=== PATIENT | female | born 1980 | race Caucasian/White ===

== ENCOUNTER 2024-10-05 17:21 | Emergency (ER) | payer MEDICAID, SELFPAY ==
[2024-10-05 17:28] VITALS: BP 124/75; PULSE 87; RESP 16; TEMP 36.8; O2SAT 95; BMI 23.3
--- NOTE | 2024-10-05 17:44 | XR_ITS ---
Examination: Left ankle 2 views TECHNIQUE: AP lateral left ankle 2 views Date and time: October 05, 2024, 1757 hours. INDICATIONS: Injury to the ankle one week ago with redness swelling and pain FINDINGS: Bimalleolar soft tissue swelling. No fracture or dislocation. IMPRESSION: No fracture or dislocation.
--- NOTE | 2024-10-05 17:44 | XR_ITS ---
Examination: Foot, left, 3 views Technique: AP, oblique, lateral views foot, 3 views Date and time of exam: October 05, 2024, 1734 hours INDICATIONS: Injury to the foot 4 days ago, foot pain. FINDINGS: Old fracture distal third metatarsal No acute fracture Soft tissue swelling dorsum of the foot IMPRESSION: No acute fracture
[2024-10-05 18:00] LABS: Basophils # (Auto) 0.1 Thou/mm3 (0.0-0.2); Basophils % (Auto) 1 % (0-2.5); Eosinophils # (Auto) 0.5 Thou/mm3 (0.0-0.5); Eosinophils % (Auto) 9 % (0-10); Hematocrit 37.4 % (36.0-46.0); Hemoglobin 12.2 g/dL (12.0-16.0); Immature Granulocytes Auto 0.02 Thou/mm3 (0.00-0.00); Lymphocytes # (Auto) 2.0 Thou/mm3 (1.0-4.8); Lymphocytes % (Auto) 35 % (10-50); Mean Corpuscular HGB Conc 32.6 g/dl (31.0-37.0); Mean Corpuscular Hemoglobin 27.3 pg (25.0-35.0); Mean Corpuscular Volume 84 fL (80-100); Monocytes # (Auto) 0.5 Thou/mm3 (0.0-0.8); Monocytes % (Auto) 8 % (0-12); Neutrophils # (Auto) 2.8 Thou/mm3 (1.8-7.7); Neutrophils % (Auto) 48 % (37-80); Nucleated Red Blood Cell # 0.00 Thou/mm3 (0.00-0.00); Nucleated Red Blood Cell % 0 /100 WBC (0); Platelet Count 124 Thou/mm3 (140-440); RDW Standard Deviation 39.9 fL (36.4-46.3); Red Blood Count 4.47 Miln/mm3 (4.00-5.20); White Blood Count 5.9 Thou/mm3 (3.6-11.0)
[2024-10-05 18:33] LABS: Alanine Aminotransferase 53 U/L (10-49); Albumin, Serum 3.4 gm/dL (3.5-5.0); Albumin/Globulin Ratio 1.1 (1.2-2.2); Alkaline Phosphatase 137 U/L (46-116); Anion Gap 8 (7-16); Aspartate Amino Transferase 48 U/L (0-34); BUN/Creatinine Ratio 16 Ratio (12-20); Bilirubin,Total 0.5 mg/dL (0.3-1.2); Blood Urea Nitrogen 11 mg/dL (9-23); Calcium 9.4 mg/dL (8.3-10.6); Calcium (Corrected) 9.9 mg/dL (8.5-10.1); Carbon Dioxide 22.9 mMol/L (20.0-31.0); Chloride 111 mMol/L (98-107); Creatinine (Component) 0.7 mg/dL (0.6-1.3); Estimated Creatinine Clearance 91.3 mL/min (>60); Globulin 3.1 gm/dL (2.3-3.5); Glucose 132 mg/dL (74-106); Osmolality,Calculated 284 (275-295); Potassium 4.0 mMol/L (3.4-5.1); Sodium 142 mMol/L (136-145); Total Protein 6.5 gm/dL (5.7-8.2); eGFR > 60 See Note
[2024-10-05 18:35] LABS: HCG,Qualitative Serum Negative
[2024-10-05] MEDS: CLINDAMYCIN PHOS INJ 150 MG/ML VIAL 6 ML 600 MG IM (18:50)
--- NOTE | 2024-10-05 18:53 | EDNOTE_ITS ---
ED Skin Abcess FB-RME/HPI General Chief complaint: Ankle/Foot Injury Stated complaint: INJURY TO L) FOOT X 1 WK Time Seen by Provider: 10/05/24 17:25 Arrival date/time: 10/05/24 17:21 This is a case of a 43-year-old female with history of psoriasis and liver cirrhosis who came in in the emergency room due to pain swelling and redness on the dorsal aspect of the left foot for 1 week patient denies any injury or trauma denies any numbness weakness tingling sensation denies any fever or chills Limitations: no limitations Related Data Previous Rx's ?Medication ?Instructions ?Recorded cholecalciferol (vitamin D3) 50 2,000 unit PO QDAY 30 days #30 caps 07/01/23 mcg (2,000 unit) capsule multivitamin with iron 1 tab PO QDAY 1 month #30 ta bs 07/01/23 thiamine mononitrate (vit B1) 100 100 mg PO BID 30 day s #60 tabs 07/01/23 mg tablet furosemide 20 mg tablet 20 mg PO QAM 30 days #30 tab s 07/25/23 hydrocodone 5 mg-acetaminophen 325 1 tab PO Q6H PRN pa in #7 tabs 07/25/23 mg tablet ondansetron HCl 4 mg tablet 4 mg PO Q8H PRN nausea and 07/25/23 vomiting #10 tabs spironolactone 50 mg tablet 50 mg PO QDAY 30 days #30 tabs 07/25/23 clindamycin HCl 300 mg capsule 300 mg PO TID 10 days # 30 caps 10/05/24 sulfamethoxazole 800 1 tab PO BID 10 days #20 tab s 10/05/24 mg-trimethoprim 160 mg tablet (Bactrim DS) Allergies Allergy/AdvReac Type Severity Reaction Status Date / Time bee venom protein (honey bee) Allergy Severe Anaphylaxis Verified 10/05/24 17:23 hydromorphone (From Dilaudid) Allergy Severe Difficulty Verified 10/05/24 17:23 Breathing morphine Allergy Severe Difficulty Verified 10/05/24 17:23 Breathing Review of Systems Review of Systems Systems Reviewed: All systems reviewed, normal except as documented Constitutional Constitutional: Reports system reviewed and no additional complaints, except as documented and Reports as per HPI Cardiovascular Cardiovascular: Reports system reviewed and no additional complaints, except as documented and Reports as per HPI Respiratory Respiratory: Reports system reviewed and no additional complaints, except as documented and Reports as per HPI Gastrointestinal Gastrointestinal: Reports system reviewed and no additional complaints, except as documented and Reports as per HPI Genitourinary Genitourinary: Reports system reviewed and no additional complaints, except as documented and Reports as per HPI Musculoskeletal Musculoskeletal: Reports system reviewed and no additional complaints, except as documented and Reports as per HPI Neurologic Neurologic: Reports system reviewed and no additional complaints, except as documented and Reports as per HPI Past Medical History Past Medical History CARDIAC: Positive Hypertension; Negative Cardiac Disorders or Congestive Heart Failure RESPIRATORY: Negative Chronic Obstructive Pulmonary Disease (COPD) or Asthma GASTROINTESTINAL: Positive Gastroesophageal Reflux Disease GENITOURINARY: Negative Genitourinary Disorders or Renal Disease ENDOCRINE: Negative Endocrine Disorders, Diabetes Mellitus Type 1 or Diabetes Mellitus Type 2 HEMATOLOGIC: Negative Blood Disorders or Sickle Cell Disease Surgical History SURGICAL: Positive Tubal Ligation Social History SMOKING STATUS: Never smoker SECOND HAND EXPOSURE: No SUBSTANCE USE: does not use ED Exam General Limitations: Present no limitations General appearance: Present alert, in no apparent distress and other (Patient is awake alert oriented not in distress nontoxic looking well-hydrated well- nourished) Head Head exam: Present atraumatic, normocephalic and normal inspection Eye Eye exam: Present normal appearance, PERRL and EOMI ENT ENT exam: Present normal exam, normal oropharynx and mucous membranes moist Neck Neck exam: Present normal inspection, full ROM and trachea midline Chest Chest inspection: Present normal inspection and symmetric chest wall rise; Absent tenderness Respiratory Respiratory exam: Present normal lung sounds bilaterally; Absent respiratory distress, wheezes, stridor, accessory muscle use or prolonged expiratory phase Cardiovascular Cardiovascular exam: Present regular rate, normal rhythm and normal heart sounds; Absent bradycardia, tachycardia, irregular rhythm, systolic murmur or diastolic murmur Abdominal Exam Abdominal exam: Present soft and normal bowel sounds Extremities Exam Extremities exam: Present normal inspection and full ROM Back Exam Back exam: Present normal inspection and full ROM Neurological Exam Neurological exam: Present alert, oriented X3, CN II-XII intact, normal gait and reflexes normal; Absent motor sensory deficit Psychiatric Psychiatric exam: Present normal affect and normal mood Skin Skin exam: Present warm, dry, intact, normal color and other (Noted a moderate tenderness on palpation on the dorsal aspect of the left foot with redness and swelling suggestive of cellulitis no abscess no open wound no ulcer ROM intact neurovascular intact) Course Quality Measures none Orders Category Date Time Status XR ankle LT 2V Stat Exams 10/05/24 17:44 Completed XR foot comp LT min 3V Stat Exams 10/05/24 17:44 Completed CBC Stat Lab 10/05/24 17:53 Completed CMP [Comprehensive Metabolic Panel] Stat Lab 10/05/24 17:53 Completed HCG,Qualitative Serum Stat Lab 10/05/24 17:53 Completed Clindamycin Vial [Cleocin vial] Med 10/05/24 18:42 Discontinued 600 mg IM X1 ONE Vital Signs Vital signs: Vital Signs Temperature 98.3 F 10/05/24 17:28 Pulse Rate 87 10/05/24 17:28 Respiratory Rate 16 10/05/24 17:28 Blood Pressure 124/75 10/05/24 17:28 Pulse Oximetry (%) 95 10/05/24 17:28 Oxygen Delivery Method Room Air 10/05/24 17:28 Oxygen saturation is 95% in room Skin / Abscess / Foreign Body MDM Narrative MDM Narrative:: This is a case of a 43-year-old female with history of psoriasis and liver cirrhosis who came in in the emergency room due to pain swelling and redness on the dorsal aspect of the left foot for 1 week patient denies any injury or trauma denies any numbness weakness tingling sensation denies any fever or chills physical examination patient is awake alert oriented not in distress nontoxic looking on physical examination moderate tenderness on palpation on the dorsal aspect of the left foot no plantar tenderness with mild swelling no open wound no crepitation no deformity warm to touch suggestive of cellulitis no abscess ROM intact neurovascular intact blood test showed no leukocytosis no anemia kidney function is normal liver function is slightly elevated patient have history of cirrhosis and taking care of GI specialist patient x-ray of the left foot and left ankle were normal no fracture no dislocation based on my physical examination and history patient symptoms suggestive of cellulitis of the left foot patient was given clindamycin here in the emergency room and was discharged with clindamycin and Bactrim patient will return in the emergency room in 2 days for evaluation of cellulitis or any worsening symptoms or any em ergent concern call 911 or go to the nearest emergency room Patient was discharged with comfortable condition walking with stable gait. Patient verbalized no further complains explained diagnosis and answered patient question. Patient is comfortable with the proposed management plan including the need to follow up with his/her primary care physician and any specialist if applicable Discussed patient for any urgent condition or worsening sx, He/She needed to go to emergency room immediately or call 911. Patient acknowledge the responsibility to follow up as instructed and to monitor her/his symptoms. For any persistence of the symptoms for more than 3-5 days return precaution advised. Discussed the result of the test and was given printed discharge instruction Patient data External records reviewed:: [facility] previous records Clinical information provided by:: patient Social determinants that could affect healthcare access:: none Patient has the following chronic illnesses:: None How is presenting disease/condition affected by chronic disease/condition?: no chronic disease Evaluation data The following diagnostics were reviewed and interpreted by me:: lab results and radiology exam(s) Lab and/or radiology exams considered but not ordered:: Reviewed Interpretation Summary: Reviewed Medications / Prescriptions Medications or Prescriptions considered but not ordered:: Given Medication administrations:: Medication Administration History Discontinued Medications Clindamycin Phosphate (Clindamycin Phos Inj 150 Mg/Ml Vial 6 Ml) 600 mg IM X1 ONE Stop: 10/05/24 18:43 Last Admin: 10/05/24 18:50 Dose: 600 mg Documented By: OA Given Consultations Consultation(s) initiated? (list below): No Diagnosis Skin/Abscess Differential Diagnosis: abscess of skin or subcutaneous tissue, cellulitis, insect bites and contact dermatitis Most likely diagnosis given after review of the tests above:: Cellulitis Admission Indicated Admission indicated?: not indicated Explain why admission is indicated or not indicated:: Not indicated Admission Request Was there a request for admission?: No Admission Attestation Admission request attestation: Not indicated Disposition Plan Disposition Plan: Discharge Discharge Attestation Discharge Attestation: The patient and all family members were given an opportunity to ask questions and understood the discharge instructions. Discharge instructions specifically effects, indications for sooner follow up or return to the emergency department, and the expected course of current diagnosis. Patient condition: Stable Discharge Plan Plan Patient Disposition: HOME (Self Care) Patient condition on transfer: Stable Prescriptions/Referrals Prescriptions/Med Rec: New clindamycin HCl 300 mg capsule 300 mg PO TID 10 Days Qty: 30 0RF sulfamethoxazole-trimethoprim [Bactrim DS] 800-160 mg tablet 1 tab PO BID 10 Days Qty: 20 0RF No Action ondansetron HCl 4 mg tablet 4 mg PO Q8H PRN (Reason: nausea and vomiting) Qty: 10 0RF furosemide 20 mg Tablet 20 mg PO QAM 30 Days Qty: 30 3RF spironolactone 50 mg tablet 50 mg PO QDAY 30 Days Qty: 30 2RF hydrocodone-acetaminophen 5-325 mg tablet 1 tab PO Q6H MDD 4 PRN (Reason: pain) Qty: 7 0RF thiamine mononitrate (vit B1) 100 mg Tablet 100 mg PO BID 30 Days Qty: 60 3RF multivitamin with iron Tablet 1 tab PO QDAY 30 Days Qty: 30 3RF cholecalciferol (vitamin D3) 50 mcg (2,000 unit) capsule 2,000 unit PO QDAY 30 Days Qty: 30 3RF Referrals: No Primary/Family,Physician [Primary Care Provider] - In 1 week Problem List Clinical Impression: Cellulitis of left foot Patient/Caregiver Discharge Instructions Education Materials: ED Cellulitis Additional Instructions: Follow-up with your primary care physician in 2 days for reevaluation return in the emergency room in 2 days for reevaluation of the cellulitis left foot worsening symptoms or any emergent concerns such as fever chills redness swelling discharge from pain call 911 or go to the nearest emergency room finish the course of antibiotic warm compresses advised elevate to decrease swelling keep the area clean and dry Print Language: Bahamian Stand Alone Forms: Saida Award Info., Patient Portal Info Letter PA/ANALYSIS MANAGER Supervising Physician PA/ARMANDO Supervising Physician: Dr. Garay
== END 2024-10-05 19:17 | disposition home or self-care (01) ==
PROVIDERS: Nurse Practitioner Family; Emergency Provider Emergency Medicine
DX: L03.116 Cellulitis of left lower limb (principal); K74.60 Unspecified cirrhosis of liver
CPT/HCPCS: 36415; 73600; 73630; 80053; 84703; 85025; 96372; 99283; J0736

== ENCOUNTER 2024-10-14 03:11 | Emergency (ER) | payer MEDICAID, SELFPAY ==
[2024-10-14 04:36] VITALS: BP 124/66; PULSE 89; RESP 18; TEMP 36.7; O2SAT 100
--- NOTE | 2024-10-14 04:38 | PC.NURSE ---
WE HAD DOWN TIME FROM [id number].
--- NOTE | 2024-10-14 05:14 | XR_ITS ---
EXAMINATION: Ankle, left 3 views . Technique: Ankle AP, oblique, lateral 3 views Date and time of exam: October 14, 2024 0524 hours INDICATIONS: Patient fell this morning with injury to the ankle, ankle pain. FINDINGS: Severely comminuted fractures of the calcaneus including depression of the subtalar surface No ankle dislocation IMPRESSION: Severely comminuted fractures of the calcaneus
--- NOTE | 2024-10-14 05:27 | XR_ITS ---
Examination: Foot, left, 3 views Technique: AP, oblique, lateral views foot, 3 views Date and time of exam: October 14, 2024 1724 hours INDICATIONS: Patient fell off a ladder this morning with injury to the foot, foot pain FINDINGS: Acute comminuted fractures, severe, calcaneus with depression subtalar surface Fractures bases and distal aspects second metatarsal Suspicious for fracture distal phalanx fifth digit IMPRESSION: Multiple foot fractures as above
--- NOTE | 2024-10-14 05:27 | EDRME_ITS ---
Rapid Medical Screening Exam RME Arrival date/time: 10/14/24 03:11 43F with history of HTN and alcohol/drug use presents to ED with L foot/ankle pain after landing on it after falling of a ladder. Patient denies hitting head and any other injuries. Chief Complaint: Ankle/Foot Injury Time Seen by Provider: 10/14/24 06:39 Vital signs: Vital Signs Temperature 98.0 F 10/14/24 04:36 Pulse Rate 89 10/14/24 04:36 Respiratory Rate 18 10/14/24 04:36 Blood Pressure 124/66 10/14/24 04:36 Pulse Oximetry (%) 100 10/14/24 04:36 Oxygen Delivery Method Room Air 10/14/24 04:36 General Adult HPI General Chief complaint: Ankle/Foot Injury Stated complaint: FALL, LT ANKLE PAIN Time Seen by Provider: 10/14/24 06:39 Source: patient Mode of arrival: ambulatory Limitations: physical limitation History of Present Illness HPI narrative: 43-year-old female with medical history significant for cirrhosis presents to the emergency department today for complaints of left foot pain patient reports that she fell from a ladder today directly onto the left foot patient reports pain and swelling to the left foot at this time Related Data Previous Rx's ?Medication ?Instructions ?Recorded cholecalciferol (vitamin D3) 50 2,000 unit PO QDAY 30 days #30 caps 07/01/23 mcg (2,000 unit) capsule multivitamin with iron 1 tab PO QDAY 1 month #30 ta bs 07/01/23 thiamine mononitrate (vit B1) 100 100 mg PO BID 30 day s #60 tabs 07/01/23 mg tablet furosemide 20 mg tablet 20 mg PO QAM 30 days #30 tab s 07/25/23 hydrocodone 5 mg-acetaminophen 325 1 tab PO Q6H PRN pa in #7 tabs 07/25/23 mg tablet ondansetron HCl 4 mg tablet 4 mg PO Q8H PRN nausea and 07/25/23 vomiting #10 tabs spironolactone 50 mg tablet 50 mg PO QDAY 30 days #30 tabs 07/25/23 clindamycin HCl 300 mg capsule 300 mg PO TID 10 days # 30 caps 10/05/24 sulfamethoxazole 800 1 tab PO BID 10 days #20 tab s 10/05/24 mg-trimethoprim 160 mg tablet (Bactrim DS) Allergies Allergy/AdvReac Type Severity Reaction Status Date / Time bee venom protein (honey bee) Allergy Severe Anaphylaxis Verified 10/05/24 17:23 hydromorphone (From Dilaudid) Allergy Severe Difficulty Verified 10/05/24 17:23 Breathing morphine Allergy Severe Difficulty Verified 10/05/24 17:23 Breathing MDM Narrative MDM hospital course: On exam patient is swelling of the left foot with bruising patient is unable to ambulate Initial x-ray reviewed by me patient and patient's x-ray patient appears to have comminuted calcaneus fracture and a second metatarsal fracture therefore a CT scan was completed Patient was given Toradol and tramadol for pain CT scan reviewed by me patient has complicated fracture We have no orthopedist on-call here I asked the charge nurse to attempt to transfer this patient to higher level of care Consultation: Spoke with orthopedist Clinical Information Provided by patient Medical Records Reviewed [facility] Meds/Rx Considered, not Ordered Describe details: Given Labs/Rad/Tests considered, not Ordered Describe details: Change Chronic Illness/Social Conditions which may negatively complicate care or outcome(s)-explain: Liver disease EKG EKG not done Lab Interpretation Labs: see narrative above Imaging Imaging interpretation: see narrative above Provider imaging interpretation(s): Ordered Radiology reports / interpretation(s): Reviewed by me Medication Administration(s) Medication Administration History Tramadol HCl (Tramadol Hcl 50 Mg Tablet) 50 mg PO X1 ONE Stop: 10/14/24 09:41 Discontinued Medications Ketorolac Tromethamine (Ketorolac Inj 30 Mg/Ml Vial) 30 mg IM X1 ONE Stop: 10/14/24 07:11 Last Admin: 10/14/24 07:22 Dose: 30 mg Documented By: KAMILAH Comments: Pt did not have an armban with code, pt had a temp arm band Naproxen (Naproxen 250 Mg Tablet) 500 mg PO X1 ONE Stop: 10/14/24 05:28 Last Admin: 10/14/24 05:50 Dose: 500 mg Documented By: YOUSIF Naproxen (Naproxen 250 Mg Tablet) Confirm Administered Dose 500 mg .ROUTE .STK- MED ONE Stop: 10/14/24 05:48 Last Admin: 10/14/24 05:51 Dose: Not Given Documented By: YOUSIF Non-Admin Reason: Duplicate Medication on eMAR Given Diagnosis Differential diagnosis: Comminuted fracture calcaneus, metatarsal fracture Most likely dx, and/or detailed dx discussion: Comminuted fracture calcaneus, metatarsal fracture Dispositon Disposition: Transfer Review of Systems Eyes Reports system reviewed and no additional complaints, except as documented ENT Reports system reviewed and no additional complaints, except as documented Card Reports system reviewed and no additional complaints, except as documented Resp Reports system reviewed and no additional complaints, except as documented, Denies cough and Denies wheezing GI Reports system reviewed and no additional complaints, except as documented Musc Reports system reviewed and no additional complaints, except as documented, swelling and trauma Details: Swelling, pain left foot ED Exam General Limitations: Present physical limitation General appearance: Present alert and in no apparent distress Head Head exam: Present atraumatic, normocephalic and normal inspection Eye Eye exam: Present normal appearance, PERRL and EOMI ENT ENT exam: Present normal exam, normal oropharynx and mucous membranes moist Neck Neck exam: Present normal inspection, full ROM and trachea midline Chest Chest inspection: Present normal inspection and symmetric chest wall rise Respiratory Respiratory exam: Present normal lung sounds bilaterally Cardiovascular Cardiovascular exam: Present regular rate, normal rhythm and normal heart sounds Abdominal Exam Abdominal exam: Present soft and normal bowel sounds Extremities Exam Extremities exam: Present tenderness, normal capillary refill and joint swelling Back Exam Back exam: Present normal inspection and full ROM Neurological Exam Neurological exam: Present alert, oriented X3 and CN II-XII intact Psychiatric Psychiatric exam: Present normal affect and normal mood Skin Skin exam: Present warm, dry, intact and normal color Past Medical History Past Medical History History Provided By: Patient Cirrhosis
[2024-10-14] MEDS: NAPROXEN 250 MG TABLET 500 MG PO (05:50)
--- NOTE | 2024-10-14 07:09 | XR_ITS ---
Examination: CT left foot, without contrast. 2-D sagittal reconstructions. 2-D coronal reconstructions. 3-D reconstructions. Date and time of exam:October 14, 2024 0829 hours INDICATIONS: Patient fell off a ladder today with injury to the foot, foot pain CTDI: vol (mGy):4.84 DLP: (mGycm):119 Technique: Multiple 1.25 mm axial sections of the foot without intravenous contrast have been obtained. 2-D sagittal and coronal reconstructions have been obtained. 3-D reconstructions have been obtained. Low dose protocols were performed. One or more of the following dose reduction techniques were used; automated exposure control, adjustment of the mA and/or KV according to patient size, use of iterative reconstruction technique. Findings: Severely comminuted calcaneal fracture, depression of the subtalar surface The main fracture fragment traverses obliquely from the subtalar surface to the plantar surface of the calcaneus Also fractures posterior superior margin of the calcaneus The severely comminuted portions of the fracture are best demonstrated on axial image 60 Fractures involving the proximal second metatarsal without significant displacement Also fractures distal second metatarsal shaft, comminuted without significant displacement Fracture involving the distal phalanx of the fifth digit sagittal image 11 with mild offset at the fracture site IMPRESSION: Multiple fractures as above
[2024-10-14] MEDS: KETOROLAC INJ 30 MG/ML VIAL IM (07:22)
[2024-10-14 10:00] LABS: Basophils # (Auto) 0.1 Thou/mm3 (0.0-0.2); Basophils % (Auto) 1 % (0-2.5); Eosinophils # (Auto) 0.6 Thou/mm3 (0.0-0.5); Eosinophils % (Auto) 8 % (0-10); Hematocrit 38.4 % (36.0-46.0); Hemoglobin 12.7 g/dL (12.0-16.0); Immature Granulocytes Auto 0.01 Thou/mm3 (0.00-0.00); Lymphocytes # (Auto) 2.6 Thou/mm3 (1.0-4.8); Lymphocytes % (Auto) 37 % (10-50); Mean Corpuscular HGB Conc 33.1 g/dl (31.0-37.0); Mean Corpuscular Hemoglobin 27.4 pg (25.0-35.0); Mean Corpuscular Volume 83 fL (80-100); Monocytes # (Auto) 0.7 Thou/mm3 (0.0-0.8); Monocytes % (Auto) 10 % (0-12); Neutrophils # (Auto) 3.1 Thou/mm3 (1.8-7.7); Neutrophils % (Auto) 44 % (37-80); Nucleated Red Blood Cell # 0.00 Thou/mm3 (0.00-0.00); Nucleated Red Blood Cell % 0 /100 WBC (0); Platelet Count 175 Thou/mm3 (140-440); RDW Standard Deviation 40.3 fL (36.4-46.3); Red Blood Count 4.64 Miln/mm3 (4.00-5.20); White Blood Count 6.9 Thou/mm3 (3.6-11.0)
[2024-10-14 10:10] LABS: INR 1.0 (0.9-1.3); Partial Thromboplastin Time 23.1 Seconds (22.0-36.0); Prothrombin Time 11.3 Seconds (9.0-12.2)
[2024-10-14 10:13] VITALS: BP 151/79; PULSE 89; RESP 16; TEMP 37.2; O2SAT 100
[2024-10-14 10:13] LABS: Alanine Aminotransferase 70 U/L (10-49); Albumin, Serum 3.8 gm/dL (3.5-5.0); Albumin/Globulin Ratio 1.1 (1.2-2.2); Alkaline Phosphatase 170 U/L (46-116); Anion Gap 9 (7-16); Aspartate Amino Transferase 65 U/L (0-34); BUN/Creatinine Ratio 28 Ratio (12-20); Bilirubin,Total 0.6 mg/dL (0.3-1.2); Blood Urea Nitrogen 22 mg/dL (9-23); Calcium 9.4 mg/dL (8.3-10.6); Calcium (Corrected) 9.6 mg/dL (8.5-10.1); Carbon Dioxide 23.0 mMol/L (20.0-31.0); Chloride 109 mMol/L (98-107); Creatinine (Component) 0.8 mg/dL (0.6-1.3); Globulin 3.4 gm/dL (2.3-3.5); Glucose 113 mg/dL (74-106); Osmolality,Calculated 285 (275-295); Potassium 3.9 mMol/L (3.4-5.1); Sodium 141 mMol/L (136-145); Total Protein 7.2 gm/dL (5.7-8.2); eGFR > 60 See Note
--- NOTE | 2024-10-14 10:51 | PC.CC ---
Addendum entered by Agnes Lopez RN 10/14/24 13:51: 1236: Called and spoke to Surya w/ [facility] to cancel transfer request. 1233: received call from AMADOU Bhatia Jaycejulee stating to cancel transfer request. She stated pt wants to follow up as outpatient. Addendum entered by Agnes Lopez RN 10/14/24 12:08: 1205: call [facility] for status update. Per Surya, clinicals were sent to the ortho oncall but has not heard back from them. Original Note: 1043: transfer request received for ortho for severely comminuted calcaneal fracture to Left foot. Transfer request initiated with [facility]. Per Surya with [facility], he will review clinicals once received and send it to ortho to review and will call back. Clinicals sent. CD created.
--- NOTE | 2024-11-03 06:51 | PD.EDANKLE ---
Lower Extremity Injury RME/HPI General Chief Complaint: Ankle/Foot Injury Stated Complaint: FALL, LT ANKLE PAIN Time Seen by Provider: 10/14/24 06:39 Source: patient Arrival date/time: 10/14/24 03:11 43F with history of HTN and alcohol/drug use presents to ED with L foot/ankle pain after landing on it after falling of a ladder. Patient denies hitting head and any other injuries. Mode of arrival: ambulatory Limitations: physical limitation RME / HPI RME / HPI Narrative: 10/14/24 03:11 43F with history of HTN and alcohol/drug use presents to ED with L foot/ankle pain after landing on it after falling of a ladder. Patient denies hitting head and any other injuries. Related Data Previous Rx's ?Medication ?Instructions ?Recorded cholecalciferol (vitamin D3) 50 2,000 unit PO QDAY 30 days #30 caps 07/01/23 mcg (2,000 unit) capsule multivitamin with iron 1 tab PO QDAY 1 month #30 tabs 07/01/23 thiamine mononitrate (vit B1) 100 100 mg PO BID 30 days #60 tabs 07/01/23 mg tablet furosemide 20 mg tablet 20 mg PO QAM 30 days #30 tabs 07/25/23 hydrocodone 5 mg-acetaminophen 325 1 tab PO Q6H PRN pain #7 tabs 07/25/23 mg tablet ondansetron HCl 4 mg tablet 4 mg PO Q8H PRN nausea and 07/25/23 vomiting #10 tabs spironolactone 50 mg tablet 50 mg PO QDAY 30 days #30 tabs 07/25/23 ibuprofen 600 mg tablet 600 mg PO Q6H #30 tabs 10/14/24 tramadol 50 mg tablet 50 mg PO BID PRN pain #14 tabs 10/14/24 Allergies Allergy/AdvReac Type Severity Reaction Status Date / Time bee venom protein (honey bee) Allergy Severe Anaphylaxis Verified 10/05/24 17:23 hydromorphone (From Dilaudid) Allergy Severe Difficulty Verified 10/05/24 17:23 Breathing morphine Allergy Severe Difficulty Verified 10/05/24 17:23 Breathing Review of Systems Review of Systems Systems Reviewed: All systems reviewed, normal except as documented Constitutional Constitutional: Reports system reviewed and no additional complaints, except as documented, Denies fever(s) and Denies headache(s) Eyes Eyes: Reports system reviewed and no additional complaints, except as documented and Denies blurry vision ENT Ears, Nose, Mouth, and Throat: Reports system reviewed and no additional complaints, except as documented, Denies headache(s), Denies nasal congestion and Denies nasal discharge Cardiovascular Cardiovascular: Reports system reviewed and no additional complaints, except as documented, Denies chest pain and Denies dyspnea Respiratory Respiratory: Reports system reviewed and no additional complaints, except as documented, Denies chest congestion, Denies cough and Denies dyspnea Gastrointestinal Gastrointestinal: Reports system reviewed and no additional complaints, except as documented and Denies abdominal pain Musculoskeletal Musculoskeletal: Reports system reviewed and no additional complaints, except as documented, Reports abnormal gait, Reports arthralgias and Denies deformity Integumentary/Breasts Skin/Breast: Reports system reviewed and no additional complaints, except as documented and Denies rash Neurologic Neurologic: Reports system reviewed and no additional complaints, except as documented, Reports as per HPI, Reports abnormal gait and Denies headache(s) Past Medical History Past Medical History CARDIAC: Positive Hypertension; Negative Cardiac Disorders or Congestive Heart Failure RESPIRATORY: Negative Chronic Obstructive Pulmonary Disease (COPD) or Asthma GASTROINTESTINAL: Positive Gastroesophageal Reflux Disease GENITOURINARY: Negative Genitourinary Disorders or Renal Disease ENDOCRINE: Negative Endocrine Disorders, Diabetes Mellitus Type 1 or Diabetes Mellitus Type 2 HEMATOLOGIC: Negative Blood Disorders or Sickle Cell Disease Surgical History SURGICAL: Positive Tubal Ligation Social History SMOKING STATUS: Never smoker SECOND HAND EXPOSURE: No SUBSTANCE USE: does not use ED Exam General Limitations: Present physical limitation General appearance: Present alert and in no apparent distress Head Head exam: Present atraumatic Eye Eye exam: Present normal appearance, PERRL and EOMI ENT ENT exam: Present normal exam, normal oropharynx and mucous membranes moist Neck Neck exam: Present normal inspection, full ROM and trachea midline Chest Chest inspection: Present normal inspection and symmetric chest wall rise Respiratory Respiratory exam: Present normal lung sounds bilaterally Cardiovascular Cardiovascular exam: Present regular rate, normal rhythm and normal heart sounds Abdominal Exam Abdominal exam: Present soft and normal bowel sounds Extremities Exam Extremities exam: Present full ROM, tenderness and normal capillary refill; Absent pedal edema, joint swelling or calf tenderness Back Exam Back exam: Present normal inspection and full ROM; Absent tenderness Neurological Exam Neurological exam: Present alert, oriented X3 and CN II-XII intact Psychiatric Psychiatric exam: Present normal affect and normal mood Skin Skin exam: Present warm, dry, intact and normal color Course Quality Measures none Orders Category Date Time Status Crutches .NOW Care 10/14/24 12:38 Completed Splint / Immobilizer STAT Care 10/14/24 12:38 Completed Referral - Can Slider Stat Cons 10/14/24 09:[address] foot LT wo con Stat Exams 10/14/24 07:09 Completed XR ankle comp LT min 3V Stat Exams 10/14/24 05:14 Completed XR foot comp LT min 3V Stat Exams 10/14/24 05:27 Completed CBC Stat Lab 10/14/24 09:46 Completed Comprehensive Metabolic Panel Stat Lab 10/14/24 09:46 Completed Partial Thromboplastin Time Stat Lab 10/14/24 09:46 Completed Prothrombin Time with INR Stat Lab 10/14/24 09:46 Completed Ketorolac Inj [Toradol Inj] Med 10/14/24 07:10 Discontinued 30 mg IM X1 ONE Naproxen [Naprosyn] Med 10/14/24 05:47 Discontinued 500 mg .ROUTE .STK-MED ONE Naproxen [Naprosyn] Med 10/14/24 05:27 Discontinued 500 mg PO X1 ONE traMADol HCL [Ultram] Med 10/14/24 09:40 Discontinued 50 mg PO X1 ONE Vital Signs Vital signs: Vital Signs Temperature 98.0 F 10/14/24 04:36 Pulse Rate 89 10/14/24 04:36 Respiratory Rate 18 10/14/24 04:36 Blood Pressure 124/66 10/14/24 04:36 Pulse Oximetry (%) 100 10/14/24 04:36 Oxygen Delivery Method Room Air 10/14/24 04:36 O2 saturation 100% room air within normal limits PROCEDURES: Splint Fabrication: Clinician Made Type: Posterior Leg Reason for Splint: Optimal Positioning and Pain Management Movement Distal to Splint: Yes Tolerance: Tolerates Well Extremity Injury, Lower MDM Narrative MDM Narrative:: 43F with history of HTN and alcohol/drug use presents to ED with L foot/ankle pain after landing on it after falling of a ladder. Patient denies hitting head and any other injuries. I reviewed the patient's x-rays patient appears to have significant fracture patient appears to have a comminuted fracture of calcaneus I ordered a CT scan to confirm the magnitude of the fracture CT scan confirms that there is a significant fracture I explained to the patient I would like to attempt to transfer her to a higher level of care patient states understanding is amenable to this plan I spoke with charge nurse who will initiate transfer Patient given pain medication Patient placed in a posterior short leg splint given crutches After waiting for some time patient reports that she no longer wants to wait and she wants to go home patient understands the risks and that ramifications of going home including incomplete healing or improper healing and possible infection patient states understanding states she still wants to leave patient GCS of 15 patient be discharged at this time Patient data External records reviewed:: [facility] previous records Clinical information provided by:: patient Social determinants that could affect healthcare access:: none Patient has the following chronic illnesses:: See history How is presenting disease/condition affected by chronic disease/condition?: uneffected by Evaluation data The following diagnostics were reviewed and interpreted by me:: radiology exam(s) Lab and/or radiology exams considered but not ordered:: Radiology obtained Interpretation Summary: Reviewed by me Medications / Prescriptions Medications or Prescriptions considered but not ordered:: Given Medication administrations:: Medication Administration History Discontinued Medications Ketorolac Tromethamine (Ketorolac Inj 30 Mg/Ml Vial) 30 mg IM X1 ONE Stop: 10/14/24 07:11 Last Admin: 10/14/24 07:22 Dose: 30 mg Documented By: KAMILAH Comments: Pt did not have an armban with code, pt had a temp arm band Naproxen (Naproxen 250 Mg Tablet) 500 mg PO X1 ONE Stop: 10/14/24 05:28 Last Admin: 10/14/24 05:50 Dose: 500 mg Documented By: CVL Naproxen (Naproxen 250 Mg Tablet) Confirm Administered Dose 500 mg .ROUTE .STK-MED ONE Stop: 10/14/24 05:48 Last Admin: 10/14/24 05:51 Dose: Not Given Documented By: CVL Non-Admin Reason: Duplicate Medication on eMAR Tramadol HCl (Tramadol Hcl 50 Mg Tablet) 50 mg PO X1 ONE Stop: 10/14/24 09:41 Last Admin: 10/14/24 09:49 Dose: 50 mg Documented By: GIOVANNA Given Consultations Consultation(s) initiated? (list below): No Diagnosis Extremity Injury, Lower Differential Diagnosis: other (Foot sprain, foot fracture) Most likely diagnosis given after review of the tests above:: Foot fracture Admission Indicated Admission indicated?: not indicated Admission Request Was there a request for admission?: No Disposition Plan Disposition Plan: Discharge Discharge Attestation Discharge Attestation: The patient and all family members were given an opportunity to ask questions and understood the discharge instructions. Discharge instructions specifically effects, indications for sooner follow up or return to the emergency department, and the expected course of current diagnosis. Patient condition: Stable Discharge Plan Plan Patient Disposition: HOME (Self Care) Discharge Disposition comment: Stable Prescriptions/Referrals Prescriptions/Med Rec: New tramadol 50 mg tablet 50 mg PO BID PRN (Reason: pain) Qty: 14 0RF ibuprofen 600 mg tablet 600 mg PO Q6H Qty: 30 0RF No Action ondansetron HCl 4 mg tablet 4 mg PO Q8H PRN (Reason: nausea and vomiting) Qty: 10 0RF furosemide 20 mg Tablet 20 mg PO QAM 30 Days Qty: 30 3RF spironolactone 50 mg tablet 50 mg PO QDAY 30 Days Qty: 30 2RF hydrocodone-acetaminophen 5-325 mg tablet 1 tab PO Q6H MDD 4 PRN (Reason: pain) Qty: 7 0RF thiamine mononitrate (vit B1) 100 mg Tablet 100 mg PO BID 30 Days Qty: 60 3RF multivitamin with iron Tablet 1 tab PO QDAY 30 Days Qty: 30 3RF cholecalciferol (vitamin D3) 50 mcg (2,000 unit) capsule 2,000 unit PO QDAY 30 Days Qty: 30 3RF Referrals: No Primary/Family,Physician [Primary Care Provider] - In 1 week Problem List Clinical Impression: Fracture of calcaneus, left, closed Patient/Caregiver Discharge Instructions Education Materials: ED Fracture, Foot Additional Instructions: Please follow-up with orthopedist as soon as possible for worsening concerns return immediately You must follow-up with orthopedist for further evaluation of your fracture Print Language: Slovenian Stand Alone Forms: Saida Award Info., Patient Portal Info Letter PA/PSYCHIATRIC REGISTERED NURSE Supervising Physician PA/PSYCHIATRIC REGISTERED NURSE Supervising Physician: Dr. waters
== END 2024-10-14 13:18 | disposition home or self-care (01) ==
PROVIDERS: Nurse Practitioner Primary Care; Emergency Provider Family Medicine
DX: S92.002A Unspecified fracture of left calcaneus, initial encounter for closed fracture (principal); S99.922A Unspecified injury of left foot, initial encounter; W11.XXXA Fall on and from ladder, initial encounter; I10 Essential (primary) hypertension
CPT/HCPCS: 36415; 73610; 73630; 73700; 80053; 85025; 85610; 85730; 96372; 99284; J1885; A9270